=== PATIENT | male | born 1985 | race American Indian/Alaskan Native ===

== ENCOUNTER 2017-11-15 04:51 | Emergency (ER) | payer OTHER ==
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
[2017-11-15 10:17] VITALS: BP 114/70
== END 2017-11-15 10:17 | disposition home or self-care (01) ==
LOC: ED 04:51
DX: M54.9 Dorsalgia, unspecified (principal); G43.909 Migraine, unspecified, not intractable, without status migrainosus; Z88.0 Allergy status to penicillin; Z88.1 Allergy status to other antibiotic agents; V89.0XXA Person injured in unspecified motor-vehicle accident, nontraffic, initial encounter; Y93.89 Activity, other specified; Y92.89 Other specified places as the place of occurrence of the external cause; Y99.8 Other external cause status
CPT/HCPCS: 99283